=== PATIENT | female | born 1950 | race Caucasian/White ===

== ENCOUNTER → 2017-09-20 | Outpatient (CLI) | payer MEDICARE, OTHER ==
[~2017-09-20] MED LIST: ALBU90OI INH; BUDE6HFA INH; Citrate Of Mag300 ML PO; ERYT.5TO LEFTEYE; ESTR2 PO; LEVSOD100 PO; METO10 PO; Neurontin 100100 MG PO; ONDA4 PO; Ultram50 MG PO; Zovirax800 MG PO
== END ==
LOC: LAB SHORT 08:17 → PLD 08:17
DX: D22.4 Melanocytic nevi of scalp and neck (principal)
CPT/HCPCS: 88305

== ENCOUNTER 2019-10-22 15:09 | Emergency (ER) | payer MEDICARE, OTHER ==
[~2019-10-22] VITALS: Ht 154.9 cm; Wt 61.7 kg
[2019-10-22 16:16] LABS: BASOPHILS ABSOLUTE AUTO 0.01 K/mm3 (0.00-0.23); BASOPHILS PERCENT AUTO 0 % (0-2); EOSINOPHILS ABSOLUTE AUTO 0.02 K/mm3 (0.00-0.68); EOSINOPHILS PERCENT AUTO 0 % (0-6); Hematocrit 39.7 % (33.0-51.0); Hemoglobin 12.6 g/dL (11.5-16.0); IMMATURE GRAN ABSOLUTE AUTO 0.01 K/mm3 (0.00-0.10); IMMATURE GRAN PERCENT AUTO 0 % (0-1); LYMPHOCYTES ABSOLUTE AUTO 1.67 K/mm3 (0.84-5.20); LYMPHOCYTES PERCENT AUTO 24 % (21-46); MONOCYTES ABSOLUTE AUTO 0.48 K/mm3 (0.16-1.47); MONOCYTES PERCENT AUTO 7 % (4-13); Mean Corpuscular HGB 29.3 pg (26.0-34.0); Mean Corpuscular HGB Conc 31.7 g/dL (31.5-36.5); Mean Corpuscular Volume 92 fL (80-100); Mean Platelet Volume 10.8 fL (9.1-12.4); NEUTROPHILS ABSOLUTE AUTO 4.73 K/mm3 (1.96-9.15); NEUTROPHILS PERCENT AUTO 69 % (41-73); Platelet Count 371 K/mm3 (150-400); RDW Coefficient Variation 13.2 % (11.7-14.2); RDW Standard Deviation 45.1 fL (35.1-46.3); White Blood Cell Count 6.92 K/mm3 (4.00-11.30)
[2019-10-22 16:31] LABS: Alanine Aminotransfer (ALT/SGP 22 U/L (12-78); Alk Phos 82 U/L (50-136); Anion Gap 6 mmol/L (6-16); Aspartate Aminotrans (AST/SGOT 19 U/L (12-37); Bilirubin, Total 0.6 mg/dL (0.1-1.0); Blood Urea Nitrogen 22 mg/dL (8-24); Bun/Creatinine Ratio 34.9 (12.0-20.0); CO2, Blood 25 mmol/L (21-32); Calcium, Blood 9.4 mg/dL (8.5-10.1); Chloride, Blood 106 mmol/L (98-108); Creatinine, Blood 0.63 mg/dL (0.40-1.00); Globulin, Blood 4.2 g/dL (2.2-4.0); Glomerular Filtration Rate >60 (60-); Glucose, Blood 99 mg/dL (70-99); Potassium, Blood 3.7 mmol/L (3.5-5.5); Sodium, Blood 137 mmol/L (136-145); Total Protein, Blood 8.2 g/dL (6.4-8.2)
[2019-10-22 18:27] LABS: Source, Urine Clean Catch
[2019-10-22 18:32] LABS: Appearance, Urine Clear (Clear); Bilirubin, Urine Neg (Neg); Blood, Urine Neg (Neg); Color, Urine Yellow (P-Yellow); Glucose Qualitative, Urine Neg (Neg); Ketones, Urine 4+ (Neg); Leukocyte Esterase, Urine Neg (Neg); Nitrite, Urine Neg (Neg); Protein, Urine Neg (Neg); Specific Gravity, Urine 1.015 (1.003-1.022); Urobilinogen, Urine NORM (Normal)
[2019-10-22] MEDS ORDERED: METO10 PO (18:53)
== END 2019-10-22 19:29 | disposition home or self-care (01) ==
LOC: ER 15:09
PROVIDERS: Physician Assistant
DX: R11.0 Nausea (principal); J45.909 Unspecified asthma, uncomplicated; Z88.6 Allergy status to analgesic agent; Z79.51 Long term (current) use of inhaled steroids; Z79.899 Other long term (current) drug therapy; Z87.891 Personal history of nicotine dependence
CPT/HCPCS: 36415; 80053; 81003; 83690; 85025; 96374; 99283-25; J2405; J2765; J7030

== ENCOUNTER → 2021-06-24 | Outpatient (CLI) | payer MEDICARE, OTHER ==
[2021-06-29 11:08] LABS: HSV-1 DNA Negative (Negative); HSV-2 DNA Positive (Negative)
== END ==
LOC: LAB 11:52 → LAB SHORT 11:52
PROVIDERS: Physician Assistant
DX: L08.9 Local infection of the skin and subcutaneous tissue, unspecified (principal); Z88.6 Allergy status to analgesic agent
CPT/HCPCS: 87529

== ENCOUNTER → 2022-06-18 | Outpatient (CLI) | payer MEDICARE, OTHER | END | disposition home or self-care (01) | LOC: LAB 12:48 → LAB SHORT 12:48 | DX: E53.8 Deficiency of other specified B group vitamins (principal) | CPT/HCPCS: 82607; 82746 ==

== ENCOUNTER 2022-10-25 13:21 | Day surgery (SDC) | payer MEDICARE, OTHER ==
[~2022-10-25] VITALS: Ht 154.9 cm; Wt 65.6 kg
[2022-10-25] MEDS ORDERED: Clonazepam0.25 MG PO (14:09)
[2022-10-25] MEDS ORDERED: ONDA4ODT MM (14:09)
[2022-10-25] MEDS ORDERED: OMEP20ER PO (14:10)
[2022-10-25] MEDS ORDERED: PREG150 PO (14:10)
[2022-10-25 14:33] LABS: BASOPHILS ABSOLUTE AUTO 0.02 K/mm3 (0.00-0.23); BASOPHILS PERCENT AUTO 0 % (0-2); EOSINOPHILS ABSOLUTE AUTO 0.14 K/mm3 (0.00-0.68); EOSINOPHILS PERCENT AUTO 2 % (0-6); Hemoglobin 12.9 g/dL (11.5-16.0); IMMATURE GRAN ABSOLUTE AUTO 0.02 K/mm3 (0.00-0.10); IMMATURE GRAN PERCENT AUTO 0 % (0-1); LYMPHOCYTES ABSOLUTE AUTO 1.35 K/mm3 (0.84-5.20); LYMPHOCYTES PERCENT AUTO 18 % (21-46); MONOCYTES ABSOLUTE AUTO 0.64 K/mm3 (0.16-1.47); MONOCYTES PERCENT AUTO 9 % (4-13); Mean Corpuscular HGB 32.7 pg (26.0-34.0); Mean Corpuscular HGB Conc 33.1 g/dL (31.5-36.5); Mean Corpuscular Volume 99 fL (80-100); Mean Platelet Volume 10.7 fL (9.1-12.4); NEUTROPHILS ABSOLUTE AUTO 5.27 K/mm3 (1.96-9.15); NEUTROPHILS PERCENT AUTO 71 % (41-73); Platelet Count 310 K/mm3 (150-400); RDW Coefficient Variation 13.2 % (11.7-14.2); RDW Standard Deviation 48.3 fL (35.1-46.3); Red Blood Cell Count 3.94 M/mm3 (3.80-5.20); White Blood Cell Count 7.44 K/mm3 (4.00-11.30)
[2022-10-25 15:00] LABS: Bun/Creatinine Ratio 30.8 (12.0-20.0); Creatinine, Blood 0.85 mg/dL (0.40-1.00); Potassium, Blood 3.9 mmol/L (3.5-5.5)
--- NOTE | 2022-10-25 15:48 | NUR ---
10/25/22 1548 Joss Walton ROPIVACAINE 0.5% 30 MLS MIXED & VERIFIED W/ EPI 0.15ML (1MG/ML) PER ORDER TO MAKE ROPIVACAINE 0.5% 1:200,000 [facility] BY DR GARCIA.
--- NOTE | 2022-10-25 17:39 | NUR ---
10/25/22 1739 Nicole Schroeder IV ZOFRAN GIVEN FOR NAUSEA PER ANESTHESIA ORDERS
== END 2022-10-25 17:37 | disposition home or self-care (01) ==
LOC: ORSCSDS 13:21
PROVIDERS: Podiatrist Foot & Ankle Surgery
PROC: 0SGM04Z Fusion of Right Metatarsal-Phalangeal Joint with Internal Fixation Device, Open Approach (ICD-10-PCS; principal; 2022-10-25 15:00)
PROC: 0QBN0ZZ Excision of Right Metatarsal, Open Approach (ICD-10-PCS; principal; 2022-10-25 15:00)
PROC: 0SGP04Z Fusion of Right Toe Phalangeal Joint with Internal Fixation Device, Open Approach (ICD-10-PCS; principal; 2022-10-25 15:00)
DX: M20.11 Hallux valgus (acquired), right foot (principal); M77.40 Metatarsalgia, unspecified foot; M20.41 Other hammer toe(s) (acquired), right foot; J45.909 Unspecified asthma, uncomplicated; E03.9 Hypothyroidism, unspecified; K21.9 Gastro-esophageal reflux disease without esophagitis; F41.9 Anxiety disorder, unspecified; Z79.899 Other long term (current) drug therapy
CPT/HCPCS: 80048; 85025; 93005; 93010; A9270; C1713; C1769; J0171; J0690; J1100; J2405; J2704; J2795; J3010; J7120

== ENCOUNTER → 2022-12-02 | Outpatient (CLI) | payer MEDICARE, OTHER ==
[~2022-12-02] MED LIST changes: +Clonazepam0.25 MG PO; +OMEP20ER PO; +ONDA4ODT MM; +PREG150 PO
[2022-12-02 19:18] LABS: Thyroid Stimulating Hormone 0.233 uIU/mL (0.360-4.800); Thyroxine (T4) 12.5 ug/dL (4.8-13.9)
== END | disposition home or self-care (01) ==
LOC: LAB 16:55 → LAB SHORT 16:55
PROVIDERS: Internal Medicine Hematology & Oncology
DX: E03.9 Hypothyroidism, unspecified (principal); D50.9 Iron deficiency anemia, unspecified
CPT/HCPCS: 82728; 83540; 83550; 84436; 84443

== ENCOUNTER → 2023-03-24 | Outpatient (CLI) | payer MEDICARE, OTHER ==
[~2023-03-24] MED LIST changes: +SIME80CH PO
[2023-03-24 19:39] LABS: Albumin, Blood 4.1 g/dL (3.4-5.0); Albumin/Globulin Ratio 1.4 (0.8-1.8); Bilirubin, Total 0.4 mg/dL (0.1-1.0); Bun/Creatinine Ratio 30.3 (12.0-20.0); Creatinine, Blood 0.73 mg/dL (0.40-1.00); Percent Saturation 38.7 % (15.0-50.0); Phosphorus, Blood 3.2 mg/dL (2.5-4.9); Potassium, Blood 3.5 mmol/L (3.5-5.5); Thyroid Stimulating Hormone 11.3 uIU/mL (0.360-4.800); Thyroxine (T4) 7.9 ug/dL (4.8-13.9); Total Protein, Blood 7.1 g/dL (6.4-8.2)
== END ==
LOC: LAB 16:17 → LAB SHORT 16:17
PROVIDERS: Internal Medicine Hematology & Oncology
DX: E03.9 Hypothyroidism, unspecified (principal); D50.9 Iron deficiency anemia, unspecified
CPT/HCPCS: 80053; 82728; 83540; 83550; 84100; 84436; 84443

== ENCOUNTER 2023-04-01 09:23 | Day surgery (SDC) | payer MEDICARE, OTHER ==
[~2023-04-01] VITALS: Ht 154.9 cm; Wt 64.1 kg
[~2023-04-01 09:23] MED LIST changes: -SIME80CH PO
[2023-04-01] MEDS ORDERED: SIME80CH PO (10:43)
--- NOTE | 2023-04-01 11:15 | NUR ---
04/01/23 1115 Chata Collins PT C/O NAUSEA PREOPERATIVELY AFTER IV PLACED. PER DR MENON, ZOFRAN 4MG IV X1 GIVEN.
--- NOTE | 2023-04-01 14:09 | NUR ---
04/01/23 1409 Shawna Obrien PT CURRENTLY C/O ONGOING NAUSEA (WHICH IS A CHRONIC ISSUE). PT ALSO COMPLAINS OF PAIN 03/31. RN TREATING NAUSEA AND PAIN PER 'S ORDERS, SEE EMAR. LOUIE. PT IN CHAIR WITH ICE BEHIND THE KNEE. PT TOLERATED PO FLUIDS WELL. CRACKERS AT CHAIRSIDE. UPDATED AND IN LOBBY PER PT'S REQUEST.
[2023-04-01 14:13] VITALS: BP 112/56
== END 2023-04-01 14:44 | disposition home or self-care (01) ==
LOC: ORSCSDS 09:23
PROVIDERS: Podiatrist Foot & Ankle Surgery
PROC: 0QSP04Z Reposition Left Metatarsal with Internal Fixation Device, Open Approach (ICD-10-PCS; principal; 2023-04-01 11:00)
PROC: 0SGN04Z Fusion of Left Metatarsal-Phalangeal Joint with Internal Fixation Device, Open Approach (ICD-10-PCS; principal; 2023-04-01 11:00)
PROC: 0QBP0ZZ Excision of Left Metatarsal, Open Approach (ICD-10-PCS; principal; 2023-04-01 11:00)
PROC: 0SGQ04Z Fusion of Left Toe Phalangeal Joint with Internal Fixation Device, Open Approach (ICD-10-PCS; principal; 2023-04-01 11:00)
DX: M20.12 Hallux valgus (acquired), left foot (principal); M20.40 Other hammer toe(s) (acquired), unspecified foot; M21.629 Bunionette of unspecified foot; S93.125A Dislocation of metatarsophalangeal joint of left lesser toe(s), initial encounter; E03.9 Hypothyroidism, unspecified; E78.5 Hyperlipidemia, unspecified; Z79.899 Other long term (current) drug therapy; Z87.891 Personal history of nicotine dependence
CPT/HCPCS: A9270; C1713; C1769; J0171; J0690; J1100; J1885; J2250; J2405; J2704; J2765; J2795; J3010; J7120

== ENCOUNTER 2023-04-02 01:52 | Emergency (ER) | payer MEDICARE, OTHER ==
[~2023-04-02 01:52] MED LIST changes: +SIME80CH PO
[2023-04-04 08:07] LABS: BASOPHILS ABSOLUTE AUTO 0.01 K/mm3 (0.00-0.23); BASOPHILS PERCENT AUTO 0 % (0-2); EOSINOPHILS ABSOLUTE AUTO 0.01 K/mm3 (0.00-0.68); EOSINOPHILS PERCENT AUTO 0 % (0-6); Hematocrit 33.6 % (33.0-51.0); Hemoglobin 11.2 g/dL (11.5-16.0); IMMATURE GRAN ABSOLUTE AUTO 0.02 K/mm3 (0.00-0.10); IMMATURE GRAN PERCENT AUTO 0 % (0-1); LYMPHOCYTES ABSOLUTE AUTO 1.36 K/mm3 (0.84-5.20); LYMPHOCYTES PERCENT AUTO 13 % (21-46); MONOCYTES ABSOLUTE AUTO 0.63 K/mm3 (0.16-1.47); MONOCYTES PERCENT AUTO 6 % (4-13); Mean Corpuscular HGB 32.8 pg (26.0-34.0); Mean Corpuscular HGB Conc 33.3 g/dL (31.5-36.5); Mean Corpuscular Volume 99 fL (80-100); Mean Platelet Volume 11.3 fL (9.1-12.4); NEUTROPHILS ABSOLUTE AUTO 8.09 K/mm3 (1.96-9.15); NEUTROPHILS PERCENT AUTO 80 % (41-73); Platelet Count 266 K/mm3 (150-400); RDW Coefficient Variation 12.5 % (11.7-14.2); Red Blood Cell Count 3.41 M/mm3 (3.80-5.20); White Blood Cell Count 10.12 K/mm3 (4.00-11.30)
== END 2023-04-02 06:10 | disposition home or self-care (01) ==
LOC: ER 01:52
PROVIDERS: Emergency Medicine
DX: L76.22 Postprocedural hemorrhage of skin and subcutaneous tissue following other procedure (principal); Z88.6 Allergy status to analgesic agent; M06.9 Rheumatoid arthritis, unspecified
CPT/HCPCS: 85025; 99283; A9270

== ENCOUNTER → 2023-09-22 | Outpatient (CLI) | payer MEDICARE, OTHER ==
[2023-09-22 20:09] LABS: Percent Saturation 29.2 % (15.0-50.0)
== END | disposition home or self-care (01) ==
LOC: LAB SHORT 16:16 → LAB 16:16
PROVIDERS: Internal Medicine Hematology & Oncology
DX: D50.0 Iron deficiency anemia secondary to blood loss (chronic) (principal)
CPT/HCPCS: 82728; 83540; 83550

== ENCOUNTER 2023-10-03 14:16 | Day surgery (SDC) | payer MEDICARE ==
[~2023-10-03] VITALS: Ht 154.9 cm; Wt 63.6 kg
[~2023-10-03 14:16] MED LIST changes: +EPINEPhrine HCl 1 MG/ML 1ML Amp ONE; +Lactated Ringer's 1,000 ML ONE; +Ropivacaine 0.5% HCl/Pf 5 MG/ML 20ML VIAL ONE
[2023-10-03] MEDS ORDERED: CeFAZolin Sodium 2,000 MG VIAL ONE (14:45)
[2023-10-03] MEDS ORDERED: Lactated Ringer's 1,000 ML IV ONE ×2 (14:45→15:23)
[2023-10-03] MEDS ORDERED: NS 50 ML IV ONE (14:45)
[2023-10-03] MEDS ORDERED: VITAMIN D32000 UNI1 PO (14:59)
[2023-10-03] MEDS ORDERED: VITAMIN E100 UNI1 PO (15:00)
[2023-10-03] MEDS ORDERED: propofoL 20 ML IV ONE (15:57)
[2023-10-03] MEDS ORDERED: EPINEPhrine HCl 1 MG/ML 1ML Amp XX ONE (16:04)
--- NOTE | 2023-10-03 16:21 | NUR ---
10/03/23 1621 Joss Walton ROPIVACAINE 0.5% 30 ML MIXED & VERIFIED W/ EPI 0.15ML (1MG/ML) TO MAKE ROPIVACAINE 0.5% 1:200,000 FOR INJECTION AT [facility]. DR GARCIA INJECTED 25ML.
--- NOTE | 2023-10-03 16:23 | NUR ---
10/03/23 0415 NITISH TAVAREZ PT DOES ADMIT THAT SHE IS HAVING SOME "STINGING" IN RIGHT FOOT FROM IV
[2023-10-03 16:29] VITALS: BP 126/67
== END 2023-10-03 17:00 | disposition home or self-care (01) ==
LOC: ORSCSDS 14:16
PROVIDERS: Podiatrist Foot & Ankle Surgery
PROC: 0YPBXYZ Removal of Other Device from Left Lower Extremity, External Approach (ICD-10-PCS; principal; 2023-10-03 16:00)
DX: T84.84XA Pain due to internal orthopedic prosthetic devices, implants and grafts, initial encounter (principal); K21.9 Gastro-esophageal reflux disease without esophagitis; J45.909 Unspecified asthma, uncomplicated; F41.9 Anxiety disorder, unspecified; E03.9 Hypothyroidism, unspecified; Z79.899 Other long term (current) drug therapy
CPT/HCPCS: J0171; J0690; J2704; J2795; J7120